=== PATIENT | male | born 2000 | race Caucasian/White ===

== ENCOUNTER 2021-05-16 09:55 | Outpatient (CLI) | payer OTHER | END 2021-05-16 09:56 | disposition critical access hospital (66) | LOC: EMS 09:55 | DX: S61.512A Laceration without foreign body of left wrist, initial encounter (principal); W29.3XXA Contact with powered garden and outdoor hand tools and machinery, initial encounter; Y93.H2 Activity, gardening and landscaping; Y92.007 Garden or yard of unspecified non-institutional (private) residence as the place of occurrence of the external cause; Y99.0 Civilian activity done for income or pay | CPT/HCPCS: A0425; A0429 ==

== ENCOUNTER 2021-05-16 10:15 | Emergency (ER) | payer OTHER ==
--- NOTE | 2021-05-16 10:32 | ED Physician Documentation ---
PD HPI UPPER EXT INJURY - Stated complaint Stated Complaint: RT WRIST LAC - Chief complaint Chief Complaint: Laceration - History obtained from History obtained from: Patient - History of Present Illness Location: Right, Wrist Type of injury: Laceration (he was reaching to toss a cut limb from bucket truck and wrist struck active chainsaw blade. Laceration with feeling of numbness little/ring fingers, and feeling weak for flexion of wrist.) Where injury occurred: Work Timing - onset: How many hours ago (1), Today Timing - details: Abrupt onset, Still present Associated symptoms: Weakness (wrist), Numbness (little and ring finger) Contributing factors: No: Anticoagulated, Prior ortho surgery Review of Systems Constitutional: denies: Fever, Chills Nose: denies: Rhinorrhea / runny nose, Congestion Throat: denies: Sore throat Respiratory: denies: Cough Neurologic: reports: Focal weakness, Numbness. denies: Near syncope PD PAST MEDICAL HISTORY - Past Medical History Past Medical History: No - Present Medications Home Medications: Ambulatory Orders Medication Instructions Recorded Confirmed HYDROcod/ACETAM 5/325 [[place] 5/325] 1 ea PO Q6H PRN #18 tablet 05/16/21 Ibuprofen [Motrin] 600 mg PO TID PRN #25 tab 05/16/21 cephALEXin [Keflex] 500 mg PO TID #20 cap 05/16/21 - Allergies Allergies/Adverse Reactions: Allergies Allergy/AdvReac Type Severity Reaction Status Date / Time No Known Drug Allergies Allergy Verified 05/16/21 10:22 PD ED PE NORMAL - Vitals Vital signs reviewed: Yes - General General: Alert and oriented X 3, No acute distress, Well developed/nourished - Derm Derm: Normal color, Warm and dry - Extremities Extremities: Other (right wrist with volar laceration about 4 cm long and extends down through fatty layer to showing visible tendons. It appears laceration of the FCU tendon. He can still flex at wrist though. mild small cloth fiber FBs easily rinsed out. ) - Neuro Neuro: Alert and oriented X 3, Normal speech, Other (little and ring fingers with diminished sensation to touch/sharp, but can still distinguish. weaker for wrist flexion but can still engage against resistance. ). No: No motor deficit (laceration has proximal tendon exposed c/w full lac likely.) Results - Vitals Vitals: Vital Signs - 24 hr 05/16/21 05/16/21 10:19 12:20 Temperature 37.3 C 37.2 C Heart Rate 53 L 69 Respiratory 14 12 Rate Blood Pressure 151/109 H 133/73 H O2 Saturation 100 100 Oxygen O2 Source Room air - Rads (name of study) wrist xray Radiology: Prelim report reviewed (no fractures), See rad report Procedures - Laceration (location) right wrist volar ulnar side. Length in cm: 4 Wound type: Irregular, Contaminated Neurovascular status: Sensory intact, Motor intact Anesthesia: Lidocaine 1% with epi Skin layer closure: Nylon, Running, Size #-0 - enter number (4), Sutures - enter # (8) PD MEDICAL DECISION MAKING - ED course Complexity details: d/w patient, d/w car sales consultant (Dr. Leach refers to hand surgeon. [facility], that includes hand specialist. They will see patient next few days. So simple skin layer closure done after cleansing/irrigating quite well. ) Departure - Departure Disposition: Home, Self Care Clinical Impression: Tendon laceration Laceration of wrist Qualifiers: Encounter type: initial encounter Laterality: right Qualified Code(s): S61.511A - Laceration without foreign body of right wrist, initial encounter Condition: Stable Record reviewed to determine appropriate education?: Yes Instructions: ED Laceration Tendon Follow-Up: [facility] [Provider Group] Prescriptions: cephALEXin [Keflex] 500 mg PO TID #20 cap Ibuprofen [Motrin] 600 mg PO TID PRN #25 tab PRN Reason: Pain HYDROcod/ACETAM 5/325 [[place] 5/325] 1 ea PO Q6H PRN #18 tablet PRN Reason: Pain Comments: Clean the wound 2-3 times daily with soap and water and then apply topical antibiotic ointment or some ointment and then dress it with clean dressing. Use the wrist splint to guard motion of the wrist otherwise. It is okay to wash and shower with the dressing off. Ibuprofen 3 times a day initially for pain and inflammation. Add Tylenol or hydrocodone as needed for worse pain. Cephalexin antibiotic 3 times a day as directed to reduce the chance of infection. We did talk with [facility] in [place] and they will call you to arrange follow-up appointment for the next several days. Concern is for needing repair of the tendons in a deeper repair of the wound. It is just loosely sutured together at this point for closure. I transmitted your prescriptions to [facility] in [facility]. I am prescribing a short course of narcotic pain medication for you. These are potentially dangerous and addictive medications that should be used carefully. These medications may constipate you. Take an [id number] stool softener such as docusate twice daily with plenty of water while taking these medications. If you go 24 hours without a bowel movement, take [id number] MiraLAX, per package instructions. Do not drink or drive while taking these medications. If you received narcotic or sedating medications while in the emergency department do not drive for 24 hours. Store this medication in a safe, secure place and out of reach of children. It is a violation of federal law to give or sell this medication to another person or to use in a manner other than prescribed. The ED will not refill narcotic prescriptions, including prescriptions lost or stolen. You can dispose of unwanted medications at the [facility]'s office or at several pharmacies such as [facility]. Discharge Date/Time: 05/16/21 12:24
[2021-05-16] MEDS ORDERED: ACETAMINOPHEN 325 MG TABLET PO STA (11:10)
[2021-05-16] MEDS ORDERED: IBUPROFEN 600 MG TABLET PO STA (11:10)
--- NOTE | 2021-05-16 11:38 | XRAY Report ---
PROCEDURE: Wrist 3 View RT INDICATIONS: wrist lac from chainsaw TECHNIQUE: 3 views of the wrist were acquired. COMPARISON: None FINDINGS: Bones: No acute fractures or dislocations. No suspicious bony lesions. Soft tissues: No suspicious soft tissue calcifications. Soft tissue defect/laceration noted over th e volar and ulnar side of the distal forearm. No radiopaque soft tissue foreign body seen. IMPRESSION: Soft tissue defect/laceration over the volar and ulnar side of the distal right forearm without assoc iated fracture/dislocation or radiopaque soft tissue foreign body. Reviewed by: Moustapha Mason MD on 05/16/2021 11:36 AM PST Approved by: Moustapha Mason MD on 05/16/2021 11:36 AM PST Station ID: [id number]
[2021-05-16] MEDS ORDERED: HYDROcod/ACETAM 5/325 MG TABLET PO STA (11:54)
[2021-05-16] MEDS ORDERED: cephALEXin 250 MG CAPSULE PO STA (11:54)
[2021-05-16 12:21] VITALS: BP 133/73
== END 2021-05-16 12:24 | disposition home or self-care (01) ==
LOC: ED 10:15
DX: S61.511A Laceration without foreign body of right wrist, initial encounter (principal); W29.3XXA Contact with powered garden and outdoor hand tools and machinery, initial encounter; Y99.0 Civilian activity done for income or pay
CPT/HCPCS: 1040M; 12002; 73110; 99283; A9270